=== PATIENT | male | born 1955 | race Caucasian/White ===

== ENCOUNTER 2017-07-09 14:01 | Observation (INO) | payer OTHER ==
[2017-07-09 18:07] LABS: INR 0.93; PROTIME 12.5 Sec (11.9-14.9)
[2017-07-09 18:08] LABS: PARTIAL THROMBOPLASTIN TIME 27.3 Sec (25.0-35.0)
[2017-07-09 18:10] LABS: ANION GAP 14 (8-16); BLOOD UREA NITROGEN 18 mg/dl (7-20); CALCIUM 9.2 mg/dl (8.4-10.2); CARBON DIOXIDE 28 mmol/L (21-31); CHLORIDE 100 mmol/L (97-110); GLUCOSE 161 mg/dl (70-220); MAGNESIUM 1.9 mg/dl (1.7-2.5); POTASSIUM 4.1 mmol/L (3.5-5.1); SODIUM 138 mmol/L (135-144)
[2017-07-09 18:22] LABS: B-TYPE NATRIURETIC PEPTIDE 268 PG/ML (0-125)
[2017-07-09 18:28] LABS: TROPONIN-I < 0.012 ng/ml (0.00-0.12)
[2017-07-09 18:35] LABS: ADD MAN DIFF? NO
[2017-07-09 18:38] LABS: BASOPHILS % 0.3 % (0.0-2.0); EOSINOPHILS # 0.3 10^3/ul (0.0-0.5); EOSINOPHILS % 2.2 % (0.0-7.0); HEMATOCRIT 40.7 % (42.0-52.0); HEMOGLOBIN 13.5 g/dl (14.0-18.0); LYMPHOCYTES # 3.3 10^3/ul (0.8-2.9); LYMPHOCYTES % 28.6 % (15.0-51.0); MEAN CORPUSCULAR HEMOGLOBIN 30.4 pg (29.0-33.0); MEAN CORPUSCULAR HGB CONC 33.2 g/dl (32.0-37.0); MEAN CORPUSCULAR VOLUME 91.7 fl (82.0-101.0); MEAN PLATELET VOLUME 9.2 fl (7.4-10.4); MONOCYTE # 1.1 10^3/ul (0.3-0.9); MONOCYTES % 9.8 % (0.0-11.0); NEUTROPHIL # 6.7 10^3/ul (1.6-7.5); NEUTROPHILS % 58.7 % (39.0-77.0); PLATELET COUNT 199 10^3/UL (140-415); RED BLOOD COUNT 4.44 10^6/ul (4.70-6.10); RED CELL DISTRIBUTION WIDTH 13.7 % (11.5-14.5)
[2017-07-09 18:38] LABS: WHITE BLOOD COUNT 11.4 10^3/ul (4.8-10.8)
[2017-07-09] MEDS: ASPIRIN 81 MG TAB PO (19:06)
[2017-07-09] MEDS: INSULIN ASPART [NOVOLOG] 3 ML PEN SC (21:00)
[2017-07-09] MEDS ORDERED: GLUCOSE GEL 15 GRAM TUBE BUCCAL (21:00)
[2017-07-09] MEDS ORDERED: GLUCOSE GEL 15 GRAM TUBE PO ×2 (21:00)
[2017-07-09] MEDS ORDERED: GLUCAGON 1 MG INJ IM (21:00)
[2017-07-09] MEDS ORDERED: DEXTROSE 50% 50 ML SYRINGE IV ×2 (21:00)
[2017-07-09] MEDS: ATORVASTATIN 80 MG TAB PO (21:28)
[2017-07-10] MEDS ORDERED: morphine 2 MG INJ IV
[2017-07-10] MEDS ORDERED: ACETAMINOPHEN 325 MG TAB PO
[2017-07-10] MEDS ORDERED: ONDANSETRON 4 MG INJ IV
[2017-07-10 00:07] LABS: CREATINE KINASE 107 IU/L (23-200)
[2017-07-10 00:20] LABS: CK INDEX 0.9
[2017-07-10 00:23] LABS: CK-MB 0.91 ng/ml (0.0-2.4); TROPONIN-I < 0.012 ng/ml (0.00-0.12)
[2017-07-10] MEDS: ACCU-CHEK XX (01:28)
[2017-07-10 05:37] LABS: CREATINE KINASE 108 IU/L (23-200)
[2017-07-10 05:49] LABS: CK INDEX 0.9
[2017-07-10 05:51] LABS: CK-MB 0.93 ng/ml (0.0-2.4); TROPONIN-I < 0.012 ng/ml (0.00-0.12)
[2017-07-10] MEDS: INSULIN ASPART [NOVOLOG] 3 ML PEN SC ×3 (07:35→17:35)
[2017-07-10] MEDS: LOSARTAN 50 MG TAB PO (08:33)
[2017-07-10] MEDS: DILTIAZEM (CD) 240 MG CAP PO (08:35)
[2017-07-10] MEDS: LEVOTHYROXINE 125 MCG TAB PO (08:36)
[2017-07-10] MEDS: ASPIRIN (EC) 81 MG TAB PO (08:38)
[2017-07-10 13:13] LABS: HEMOGLOBIN A1C 8.1 % (0-5.9)
[2017-07-10] MEDS: REGADENOSON 0.4 MG/5 ML SYG (13:35)
[2017-07-10] MEDS: APIXABAN 5 MG TABLET PO (16:42)
[2017-07-11] MEDS ORDERED: APIXABAN 5 MG TABLET PO (09:00)
== END 2017-07-10 18:08 | disposition home or self-care (01) ==
LOC: E/R 14:01 → MS3 18:46
DX: H81.10 Benign paroxysmal vertigo, unspecified ear (principal); R07.89 Other chest pain; E03.9 Hypothyroidism, unspecified; E11.9 Type 2 diabetes mellitus without complications; I10 Essential (primary) hypertension; E78.5 Hyperlipidemia, unspecified; I48.2 Chronic atrial fibrillation; E78.00 Pure hypercholesterolemia, unspecified; Z86.73 Personal history of transient ischemic attack (TIA), and cerebral infarction without residual deficits; Z79.4 Long term (current) use of insulin; Z79.82 Long term (current) use of aspirin; Z87.891 Personal history of nicotine dependence
CPT/HCPCS: 36415; 71045; 78452; 80048; 82550; 82553; 82962; 83036; 83735; 83880; 84484; 85025; 85610; 85730; 93005; 93017; 93306; 99285-25

== ENCOUNTER 2018-01-30 16:42 | Inpatient (IN) | payer OTHER ==
[2018-01-30 17:48] LABS: ADD MAN DIFF? NO
[2018-01-30] MEDS: FUROSEMIDE 40 MG INJ IV (17:51)
[2018-01-30 17:52] LABS: WHITE BLOOD COUNT 9.1 10^3/ul (4.8-10.8)
[2018-01-30 17:52] LABS: BASOPHILS % 0.3 % (0.0-2.0); EOSINOPHILS # 0.4 10^3/ul (0.0-0.5); EOSINOPHILS % 4.1 % (0.0-7.0); HEMATOCRIT 40.3 % (42.0-52.0); HEMOGLOBIN 12.9 g/dl (14.0-18.0); LYMPHOCYTES # 2.3 10^3/ul (0.8-2.9); LYMPHOCYTES % 25.5 % (15.0-51.0); MEAN CORPUSCULAR HEMOGLOBIN 29.6 pg (29.0-33.0); MEAN CORPUSCULAR VOLUME 92.4 fl (82.0-101.0); MEAN PLATELET VOLUME 9.4 fl (7.4-10.4); MONOCYTE # 0.8 10^3/ul (0.3-0.9); MONOCYTES % 8.7 % (0.0-11.0); NEUTROPHIL # 5.6 10^3/ul (1.6-7.5); NEUTROPHILS % 60.9 % (39.0-77.0); PLATELET COUNT 187 10^3/UL (140-415); RED BLOOD COUNT 4.36 10^6/ul (4.70-6.10); RED CELL DISTRIBUTION WIDTH 14.9 % (11.5-14.5)
[2018-01-30 18:08] LABS: AADO2 Arterial 21.3 mmHg (7.0-24.0); Allen Test ACCEPTAB; Arterial Base Excess -0.4 mmol/L (-3.0-3); Arterial Blood Gas Oxygen Sat 95.8 mmHG (95.0-98.0); Arterial COHb 0.8 % (0.0-3.0); Arterial Fraction of Oxyhgb 94.8 % (93.0-99.0); Arterial HCO3 24.4 mmol/L (22.0-26.0); Arterial MetHb 0.2 % (0.0-1.5); Arterial Total Hemglobin 14.4 g/dl (12.0-18.0); Arterial pCO2 40.9 mmhg (35-45); MODE ROOM AIR; Site Left Radial
[2018-01-30 18:13] LABS: ALANINE AMINOTRANSFERASE 39 IU/L (13-69); ALBUMIN 3.8 g/dl (3.3-4.9); ALBUMIN/GLOBULIN RATIO 1.46; ALKALINE PHOSPHATASE 128 IU/L (42-121); ANION GAP 9 (5-13); ASPARTATE AMINO TRANSFERASE 29 IU/L (15-46); BILIRUBIN,INDIRECT 0.2 mg/dl (0-1.1); BILIRUBIN,TOTAL 0.2 mg/dl (0.2-1.3); BLOOD UREA NITROGEN 15 mg/dl (7-20); CALCIUM 8.6 mg/dl (8.4-10.2); CARBON DIOXIDE 26 mmol/L (21-31); CHLORIDE 101 mmol/L (97-110); CREATININE 0.67 mg/dl (0.61-1.24); Estimated GFR > 60 mL/min (>60); GLUCOSE 291 mg/dl (70-220); LIPASE 94 U/L (23-300); POTASSIUM 4.2 mmol/L (3.5-5.1); SODIUM 136 mmol/L (135-144); TOTAL PROTEIN 6.4 g/dl (6.1-8.1)
[2018-01-30 18:22] LABS: B-TYPE NATRIURETIC PEPTIDE 554 PG/ML (0-125)
[2018-01-30 18:25] LABS: TROPONIN-I < 0.012 ng/ml (0.000-0.120)
[2018-01-30] MEDS: ENALAPRILAT 1.25 MG INJ IV (19:45)
[2018-01-30] MEDS ORDERED: NACL 0.9% 3 ML SYG IV (20:30)
[2018-01-30] MEDS ORDERED: ONDANSETRON 4 MG INJ IV (20:30)
[2018-01-30] MEDS ORDERED: DEXTROSE 50% 50 ML SYRINGE IV ×2 (21:00)
[2018-01-30] MEDS ORDERED: GLUCOSE GEL 15 GRAM TUBE PO ×2 (21:00)
[2018-01-30] MEDS ORDERED: GLUCAGON 1 MG INJ IM (21:00)
[2018-01-30] MEDS ORDERED: GLUCOSE GEL 15 GRAM TUBE BUCCAL (21:00)
[2018-01-30] MEDS: INSULIN ASPART [NOVOLOG] 3 ML PEN SC (21:00)
[2018-01-30] MEDS ORDERED: HEPARIN 5,000 UNIT/0.5 ML VIAL (21:06)
[2018-01-30] MEDS: ATORVASTATIN 80 MG TAB PO (21:16)
[2018-01-30] MEDS: HEPARIN 5,000 UNIT/1 ML VIAL SC (21:30)
[2018-01-31] MEDS: ACCU-CHEK XX (01:06)
[2018-01-31 01:51] LABS: TROPONIN-I < 0.012 ng/ml (0.000-0.120)
[2018-01-31] MEDS ORDERED: HEPARIN 5,000 UNIT/0.5 ML VIAL ×2 (06:18→13:20)
[2018-01-31] MEDS: LEVOTHYROXINE 150 MCG TAB PO (06:22)
[2018-01-31] MEDS: HEPARIN 5,000 UNIT/1 ML VIAL SC ×2 (06:41→13:31)
[2018-01-31 06:48] LABS: ADD MAN DIFF? NO
[2018-01-31 06:52] LABS: WHITE BLOOD COUNT 10.2 10^3/ul (4.8-10.8)
[2018-01-31 06:52] LABS: BASOPHILS % 0.3 % (0.0-2.0); EOSINOPHILS # 0.5 10^3/ul (0.0-0.5); EOSINOPHILS % 4.5 % (0.0-7.0); HEMATOCRIT 42.2 % (42.0-52.0); HEMOGLOBIN 13.4 g/dl (14.0-18.0); LYMPHOCYTES # 2.6 10^3/ul (0.8-2.9); LYMPHOCYTES % 25.7 % (15.0-51.0); MEAN CORPUSCULAR HEMOGLOBIN 29.4 pg (29.0-33.0); MEAN CORPUSCULAR HGB CONC 31.8 g/dl (32.0-37.0); MEAN CORPUSCULAR VOLUME 92.5 fl (82.0-101.0); MEAN PLATELET VOLUME 9.9 fl (7.4-10.4); MONOCYTE # 0.9 10^3/ul (0.3-0.9); MONOCYTES % 9.2 % (0.0-11.0); NEUTROPHIL # 6.1 10^3/ul (1.6-7.5); NEUTROPHILS % 59.9 % (39.0-77.0); PLATELET COUNT 200 10^3/UL (140-415); RED BLOOD COUNT 4.56 10^6/ul (4.70-6.10); RED CELL DISTRIBUTION WIDTH 15.3 % (11.5-14.5)
[2018-01-31 07:14] LABS: ANION GAP 11 (5-13); BLOOD UREA NITROGEN 15 mg/dl (7-20); CALCIUM 9.2 mg/dl (8.4-10.2); CARBON DIOXIDE 29 mmol/L (21-31); CHLORIDE 99 mmol/L (97-110); CREATININE 0.87 mg/dl (0.61-1.24); Estimated GFR > 60 mL/min (>60); GLUCOSE 259 mg/dl (70-220); MAGNESIUM 1.8 mg/dl (1.7-2.5); POTASSIUM 4.5 mmol/L (3.5-5.1); SODIUM 139 mmol/L (135-144)
[2018-01-31 07:17] LABS: TROPONIN-I < 0.012 ng/ml (0.000-0.120)
[2018-01-31] MEDS: INSULIN ASPART [NOVOLOG] 3 ML PEN SC ×5 (07:55→20:30)
[2018-01-31] MEDS: INSULIN GLARGINE [LANTus] (100 UNITS/ML) SYG SC (08:01)
[2018-01-31] MEDS: INFLUENZA VIRUS VACCINE 0.5 ML (DISPENSING) IM* (08:02)
[2018-01-31] MEDS: ASPIRIN (EC) 81 MG TAB PO (08:04)
[2018-01-31] MEDS: LOSARTAN 50 MG TAB PO (08:04)
[2018-01-31] MEDS: DIGOXIN 0.125 MG TAB PO (13:24)
[2018-01-31] MEDS: APIXABAN 5 MG TABLET PO ×2 (16:53→20:27)
[2018-01-31] MEDS: ATORVASTATIN 80 MG TAB PO (20:27)
[2018-01-31] MEDS: ACETAMINOPHEN 325 MG TAB PO (20:32)
[2018-02-01] MEDS: ACCU-CHEK XX (02:00)
[2018-02-01] MEDS: LEVOTHYROXINE 150 MCG TAB PO (06:53)
[2018-02-01] MEDS: LOSARTAN 50 MG TAB PO (08:14)
[2018-02-01] MEDS: APIXABAN 5 MG TABLET PO (08:15)
[2018-02-01] MEDS: ASPIRIN (EC) 81 MG TAB PO (08:15)
[2018-02-01] MEDS: INSULIN GLARGINE [LANTus] (100 UNITS/ML) SYG SC (08:18)
[2018-02-01] MEDS: INSULIN ASPART [NOVOLOG] 3 ML PEN SC ×4 (08:19→12:30)
[2018-02-01 08:46] LABS: ANION GAP 7 (5-13); BLOOD UREA NITROGEN 15 mg/dl (7-20); CALCIUM 9.5 mg/dl (8.4-10.2); CARBON DIOXIDE 33 mmol/L (21-31); CHLORIDE 99 mmol/L (97-110); CREATININE 0.77 mg/dl (0.61-1.24); Estimated GFR > 60 mL/min (>60); GLUCOSE 231 mg/dl (70-220); MAGNESIUM 1.9 mg/dl (1.7-2.5); POTASSIUM 5.1 mmol/L (3.5-5.1); SODIUM 139 mmol/L (135-144)
[2018-02-01] MEDS: DIGOXIN 0.125 MG TAB PO (12:27)
[2018-02-01] MEDS: RIVAROXABAN 20 MG TABLET PO (16:28)
== END 2018-02-01 16:32 | disposition home or self-care (01) | DRG 69 ==
LOC: E/R 16:42 → TEL 19:07
DX: G45.9 Transient cerebral ischemic attack, unspecified (principal); I50.33 Acute on chronic diastolic (congestive) heart failure; I48.91 Unspecified atrial fibrillation; R07.9 Chest pain, unspecified; E11.9 Type 2 diabetes mellitus without complications; I10 Essential (primary) hypertension; E03.9 Hypothyroidism, unspecified; Z86.73 Personal history of transient ischemic attack (TIA), and cerebral infarction without residual deficits
CPT/HCPCS: 36415; 36600; 70450; 71045; 80048; 80053; 82803; 82962; 83690; 83735; 83880; 84484; 85025; 90686; 93005; 93306; 93880; 96374; 99285-25